=== PATIENT | male | born 1975 ===

== ENCOUNTER 2020-04-21 09:29 | Emergency (ER) | payer BC ==
[2020-04-21] MEDS ORDERED: predniSONE 20 MG Tab PO ONE (09:59)
--- NOTE | 2020-04-21 10:12 | EDM.PDOC ---
ED HPI GENERAL MEDICAL PROBLEM - General Chief Complaint: General Stated Complaint: JOINT PAIN/ KNEE,WRIST,ELBOW,FOOT Time Seen by Provider: 04/21/20 09:46 Source of Information: Reports: Patient, RN Notes Reviewed - History of Present Illness INITIAL COMMENTS - FREE TEXT/NARRATIVE: 44 yr old male comes in with multiple jt stiffness and soreness. Has had gout multiple jts in the past but usually one at time. Started having stiffness and soreness of middle finger R hand, R wrist, R elbow, both knees 3 or 4 days ago, worse today. No cough, sore throat, fever or chills. No known hx of other inflamatory arthritis or illness. Hx Htn. Generalized Pain Score (Numeric/FACES): 8 - Related Data Allergies Allergy/AdvReac Type Severity Reaction Status Date / Time Cephalosporins Allergy Severe Cannot Verified 04/21/20 09:41 Remember Penicillins Allergy Severe Cannot Verified 04/21/20 09:41 Remember Home Meds: Home Meds Aspirin 81 mg PO BEDTIME 04/21/20 [History] Celecoxib [CeleBREX] 50 mg PO DAILY 04/21/20 [History] Gabapentin [Neurontin] 400 mg PO TID PRN 04/21/20 [History] Indomethacin 50 mg PO TID PRN 04/21/20 [History] lisinopriL [Lisinopril] 20 mg PO BID 04/21/20 [History] metFORMIN HCl [Metformin HCl] 1,000 mg PO BID 04/21/20 [History] Past Medical History Cardiovascular History: Reports: Arrhythmia, Hypertension, Other (See Below) Other Cardiovascular History: SVT Musculoskeletal History: Reports: Arthritis, Gout Neurological History: Reports: Other (See Below) Other Neuro History: sciatica Endocrine/Metabolic History: Reports: Other (See Below) Other Endocrine/Metabolic History: prediabetic - Infectious Disease History Infectious Disease History: Reports: Chicken Pox - Past Surgical History HEENT Surgical History: Reports: Myringotomy w Tube(s) Cardiovascular Surgical History: Reports: Cardiac Ablation, Other (See Below) Other Cardiovascular Surgeries/Procedures: heart cath Social & Family History - Family History Family Medical History: Noncontributory - Tobacco Use Smoking Status *Q: Never Smoker Second Hand Smoke Exposure: No - Caffeine Use Caffeine Use: Reports: Coffee - Recreational Drug Use Recreational Drug Use: No ED ROS GENERAL - Review of Systems Review Of Systems: See Below Constitutional: Denies: Fever, Chills HEENT: Denies: Throat Pain Respiratory: Denies: Shortness of Breath, Cough Cardiovascular: Denies: Chest Pain GI/Abdominal: Denies: Abdominal Pain, Diarrhea, Nausea, Vomiting Musculoskeletal: Reports: Joint Pain Skin: Denies: Rash Neurological: Denies: Numbness, Tingling, Weakness ED EXAM, GENERAL - Physical Exam Exam: See Below General Appearance: Alert, No Apparent Distress Head: Atraumatic Neck: Supple Respiratory/Chest: No Respiratory Distress Extremities: Other (There is swelling and mild tenderness of his R middle finger, remainder of hand, wrist not swollen or tender, mild selling and tenderness R elbow) Neurological: Alert, Oriented, No Motor/Sensory Deficits Skin Exam: Warm, Dry, Normal Color Course - Vital Signs Last Recorded V/S: Last Vital Signs Temp 96.8 F L 04/21/20 09:38 Pulse 79 04/21/20 11:13 Resp 19 04/21/20 11:13 BP 118/72 04/21/20 11:13 Pulse Ox 96 04/21/20 11:13 - Orders/Labs/Meds Orders: Active Orders 24 hr Category Date Time Status MADIHA W/RFX TO ALL IF POSITIVE [REF] Stat Lab 04/21/20 10:01 Ordered Labs: Laboratory Tests 04/21/20 04/21/20 04/21/20 Range/Units 10:10 10:10 10:10 WBC 12.78 H (4.23-9.07) K/mm3 RBC 4.39 L (4.63-6.08) M/mm3 Hgb 13.8 (13.7-17.5) gm/dl Hct 39.3 L (40.1-51.0) % MCV 89.5 (79.0-92.2) fl MCH 31.4 (25.7-32.2) pg MCHC 35.1 (32.2-35.5) g/dl RDW Std Deviation 41.2 (35.1-43.9) fL Plt Count 257 (163-337) K/mm3 MPV 9.8 (9.4-12.3) fl Neut % (Auto) 81.9 H (34.0-67.9) % Lymph % (Auto) 7.9 L (21.8-53.1) % Lincoln % (Auto) 8.7 (5.3-12.2) % Eos % (Auto) 0.9 (0.8-7.0) Baso % (Auto) 0.2 (0.1-1.2) % Neut # (Auto) 10.47 H (1.78-5.38) K/mm3 Lymph # (Auto) 1.01 L (1.32-3.57) K/mm3 Lincoln # (Auto) 1.11 H (0.30-0.82) K/mm3 Eos # (Auto) 0.12 (0.04-0.54) K/mm3 Baso # (Auto) 0.02 (0.01-0.08) K/mm3 Manual Slide Review Normal smear ESR 31 H (0-15) mm/hr Uric Acid 7.8 H (3.5-7.2) mg/dL Rheumatoid Factor Scrn (NEGATIVE) 04/21/20 Range/Units 10:10 WBC (4.23-9.07) K/mm3 RBC (4.63-6.08) M/mm3 Hgb (13.7-17.5) gm/dl Hct (40.1-51.0) % MCV (79.0-92.2) fl MCH (25.7-32.2) pg MCHC (32.2-35.5) g/dl RDW Std Deviation (35.1-43.9) fL Plt Count (163-337) K/mm3 MPV (9.4-12.3) fl Neut % (Auto) (34.0-67.9) % Lymph % (Auto) (21.8-53.1) % Lincoln % (Auto) (5.3-12.2) % Eos % (Auto) (0.8-7.0) Baso % (Auto) (0.1-1.2) % Neut # (Auto) (1.78-5.38) K/mm3 Lymph # (Auto) (1.32-3.57) K/mm3 Lincoln # (Auto) (0.30-0.82) K/mm3 Eos # (Auto) (0.04-0.54) K/mm3 Baso # (Auto) (0.01-0.08) K/mm3 Manual Slide Review ESR (0-15) mm/hr Uric Acid (3.5-7.2) mg/dL Rheumatoid Factor Scrn Negative (NEGATIVE) Meds: Medications Discontinued Medications Generic Name Dose Route Start Last Admin Trade Name Aniceto PRN Reason Stop Dose Admin Prednisone 80 mg 04/21/20 09:59 04/21/20 10:06 Prednisone PO 04/21/20 10:00 80 mg ONETIME ONE Administration Departure - Departure Time of Disposition: 10:58 Disposition: Home, Self-Care 01 Condition: Fair Clinical Impression: Polyarthralgia - Discharge Information Instructions: Muscle Pain, Adult Referrals: PCP,None [Primary Care Provider] - Forms: ED Department Discharge Additional Instructions: Prednisone as prescribed. You may take Indocin as previously prescribed, you may also take tylenol 3 to 4 times daily for extra pain relief as needed. See Medical provider at our [facility] medical clinic in about 1 week for recheck and further pending lab results. Call [phone] for appointment. Return to ED as needed. Sepsis Event Note (ED) - Evaluation Sepsis Screening Result: No Definite Risk - Focused Exam Vital Signs: Vital Signs Temp Pulse Resp BP Pulse Ox 04/21/20 11:13 79 19 118/72 96 04/21/20 09:38 96.8 F L 96 19 132/95 H 99 - My Orders Last 24 Hours: My Active Orders 04/21/20 10:01 MADIHA W/RFX TO ALL IF POSITIVE [REF] Stat - Assessment/Plan Last 24 Hours: My Active Orders 04/21/20 10:01 MADIHA W/RFX TO ALL IF POSITIVE [REF] Stat
== END 2020-04-21 11:13 | disposition home or self-care (01) ==
LOC: JD.ED 09:29
DX: M25.541 Pain in joints of right hand (principal); M25.531 Pain in right wrist; M25.521 Pain in right elbow; M25.562 Pain in left knee; M25.561 Pain in right knee; I10 Essential (primary) hypertension; R73.03 Prediabetes; M10.9 Gout, unspecified; Z79.82 Long term (current) use of aspirin; Z79.84 Long term (current) use of oral hypoglycemic drugs; Z79.899 Other long term (current) drug therapy
CPT/HCPCS: 36415; 84550; 85025; 85652; 86038; 86430; 99283; J7512